=== PATIENT | female | born 1955 | race Hispanic/Latino ===

== ENCOUNTER 2017-07-03 07:34 | Emergency (ER) | payer OTHER, MEDICARE ==
[~2017-07-03 07:34] MED LIST: AMLO5TAB2 PO; ATOR20TA65 PO; CLOP75TA14 PO; HYDR-4068 PO
[2017-07-03] MEDS ORDERED: PANTOPRAZOLE SODIUM 40 MG TABLET.DR PO ONE (08:31)
[2017-07-03] MEDS ORDERED: SODIUM CHLORIDE 0.9% 1000ML 1,000 ML IV ONE (08:31)
[2017-07-03] MEDS ORDERED: ONDANSETRON HCL 4 MG/2 ML VIAL ONE (08:31)
[2017-07-03 08:44] LABS: BASOPHILS % (AUTO) 0.4 % (0.0-5.0); LYMPHOCYTES % (AUTO) 9.4 % (21.0-51.0); MEAN CORPUSCULAR HEMOGLOBIN 29.1 pg (27.0-33.0); MEAN CORPUSCULAR HGB CONC 34.4 g/dL (32.0-36.0); MEAN CORPUSCULAR VOLUME 84.7 fL (79-99); MONOCYTES % (AUTO) 3.7 % (3.0-13.0); NEUTROPHILS % (AUTO) 84.5 % (40.0-77.0); PLATELET COUNT (AUTO) 228 K/uL (130-400); RED BLOOD CELL COUNT(AUTO) 4.95 MIL/uL (4.00-5.50); WHITE BLOOD COUNT (AUTO) 6.4 K/uL (4.8-10.8)
[2017-07-03 08:51] LABS: CREATININE 0.7 mg/dL (0.5-1.5); POTASSIUM 3.8 mmol/L (3.5-5.1)
[2017-07-03 08:57] LABS: ALBUMIN 3.4 g/dL (3.5-5.0); BILIRUBIN,TOTAL 0.7 mg/dL (0.2-1.0); TOTAL PROTEIN, SERUM 7.4 g/dL (6.0-8.3)
== END 2017-07-03 10:22 | disposition home or self-care (01) ==
LOC: EDH 07:34
DX: K52.9 Noninfective gastroenteritis and colitis, unspecified (principal); E86.0 Dehydration; L98.8 Other specified disorders of the skin and subcutaneous tissue; E78.5 Hyperlipidemia, unspecified; I10 Essential (primary) hypertension; E20.9 Hypoparathyroidism, unspecified; Z90.49 Acquired absence of other specified parts of digestive tract; Z98.890 Other specified postprocedural states
CPT/HCPCS: 36415; 71045; 74021; 80053; 83690; 84484; 85025; 93005; 96361; 96374; 99285; J2405; J7030

== ENCOUNTER 2017-07-20 10:40 | Emergency (ER) | payer OTHER, MEDICARE ==
[2017-07-20 11:20] LABS: BASOPHILS % (AUTO) 0.8 % (0.0-5.0); EOSINOPHILS % (AUTO) 2.6 % (0.0-8.0); HEMATOCRIT 42.1 % (36-48); LYMPHOCYTES % (AUTO) 31.6 % (21.0-51.0); MEAN CORPUSCULAR HEMOGLOBIN 28.6 pg (27.0-33.0); MEAN CORPUSCULAR HGB CONC 33.7 g/dL (32.0-36.0); MEAN CORPUSCULAR VOLUME 84.9 fL (79-99); MONOCYTES % (AUTO) 5.7 % (3.0-13.0); NEUTROPHILS % (AUTO) 59.3 % (40.0-77.0); NUCLEATED RED BLOOD CELLS 0.1 % (0.0-0.19); PLATELET COUNT (AUTO) 233 K/uL (130-400); RED BLOOD CELL COUNT(AUTO) 4.95 MIL/uL (4.00-5.50); RED CELL DISTRIBUTION WIDTH 14.6 % (11.0-15.5); WHITE BLOOD COUNT (AUTO) 4.2 K/uL (4.8-10.8)
[2017-07-20 11:32] LABS: CREATININE 0.5 mg/dL (0.5-1.5); POTASSIUM 4.3 mmol/L (3.5-5.1)
[2017-07-20 11:36] LABS: ALBUMIN 3.5 g/dL (3.5-5.0); BILIRUBIN,TOTAL 0.8 mg/dL (0.2-1.0); TOTAL PROTEIN, SERUM 7.4 g/dL (6.0-8.3)
[2017-07-20 11:54] LABS: APPEARANCE,URINE Clear (CLEAR); BILIRUBIN,URINE Negative (NEGATIVE); COLOR,URINE Yellow (YELLOW); GLUCOSE, URINE (UA) Negative (NEGATIVE); KETONES,URINE Negative (NEGATIVE); LEUKOCYTE ESTERASE ,URINE Large (NEGATIVE); NITRATE,URINE Negative (NEGATIVE); OCCULT BLOOD,URINE Negative (NEGATIVE); PH,URINE 7.5 (5.0-8.0); PROTEIN,URINE Negative (NEGATIVE)
[2017-07-20 12:19] LABS: BACTERIA,URINE Rare /HPF (None Seen); SQUAMOUS EPITHELIAL CELL,UR Rare /LPF (0-2)
== END 2017-07-20 13:34 | disposition home or self-care (01) ==
LOC: EDH 10:40
DX: R51 Headache (principal); R20.2 Paresthesia of skin; E78.5 Hyperlipidemia, unspecified; I10 Essential (primary) hypertension; E20.9 Hypoparathyroidism, unspecified; Z98.890 Other specified postprocedural states; Z86.73 Personal history of transient ischemic attack (TIA), and cerebral infarction without residual deficits; Z79.899 Other long term (current) drug therapy
CPT/HCPCS: 36415; 70450; 71045; 80053; 81001; 85025; 93005

== ENCOUNTER → 2017-08-30 | Outpatient (CLI) | payer OTHER, MEDICARE ==
[~2017-08-30] MED LIST changes: +ASPI-1197 PO; +CITA-107 PO; +LOSA50TA37 PO; +PANT40TA25 PO
== END ==
LOC: RAH 10:28
PROVIDERS: ATTEND Internal Medicine Gastroenterology
DX: R11.2 Nausea with vomiting, unspecified (principal); R10.9 Unspecified abdominal pain
CPT/HCPCS: 78264; A9541

== ENCOUNTER 2017-09-13 20:52 | Inpatient (IN) | payer OTHER, MEDICARE ==
[~2017-09-13] VITALS: Ht 162.6 cm; Wt 149.5 kg
[~2017-09-13 20:52] MED LIST changes: -ASPI-1197 PO; -CITA-107 PO; -LOSA50TA37 PO; -PANT40TA25 PO
[2017-09-13 21:52] LABS: BASOPHILS % (AUTO) 0.6 % (0.0-5.0); EOSINOPHILS % (AUTO) 1.8 % (0.0-8.0); HEMATOCRIT 40.3 % (36-48); LYMPHOCYTES % (AUTO) 22.8 % (21.0-51.0); MEAN CORPUSCULAR HEMOGLOBIN 29.3 pg (27.0-33.0); MEAN CORPUSCULAR HGB CONC 34.3 g/dL (32.0-36.0); MEAN CORPUSCULAR VOLUME 85.5 fL (79-99); MONOCYTES % (AUTO) 7.8 % (3.0-13.0); PLATELET COUNT (AUTO) 255 K/uL (130-400); RED BLOOD CELL COUNT(AUTO) 4.72 MIL/uL (4.00-5.50); RED CELL DISTRIBUTION WIDTH 15.4 % (11.0-15.5); WHITE BLOOD COUNT (AUTO) 5.8 K/uL (4.8-10.8)
[2017-09-13 22:09] LABS: CARBON DIOXIDE 29 mmol/L (21-32); CHLORIDE 109 mmol/L (101-111); CREATININE 0.8 mg/dL (0.5-1.5); GLOMERULAR FILTR. RATE CALC 77 mL/min (>60); GLUCOSE,RANDOM 114 mg/dL (70-105); POTASSIUM 3.8 mmol/L (3.5-5.1); SODIUM SERUM 144 mmol/L (136-145); UREA NITROGEN, BLOOD 16 mg/dL (7-18)
[2017-09-13 22:13] LABS: INR 0.98 (0.85-1.15); PARTIAL THROMBOPLASTIN TIME 23.5 SEC (26.3-35.5); PROTHROMBIN TIME 10.1 SEC (9.6-11.6)
[2017-09-13 22:23] LABS: ALANINE AMINOTRANSFERASE 30 U/L (12-78); ALBUMIN 3.5 g/dL (3.5-5.0); ASPARTATE AMINOTRANSFERASE 19 U/L (10-37); BILIRUBIN,TOTAL 0.4 mg/dL (0.2-1.0); CREATINE KINASE MB < 0.5 ng/mL (0.5-3.6); CREATINE KINASE, TOTAL 28 U/L (21-232); MYOGLOBIN 35 ng/mL (10-92); TOTAL PROTEIN, SERUM 7.6 g/dL (6.0-8.3)
[2017-09-13] MEDS ORDERED: IOPAMIDOL-370 75 ML VIAL IV ONE ×2 (23:00→23:10)
[2017-09-13 23:05] LABS: APPEARANCE,URINE Clear (CLEAR); BILIRUBIN,URINE Negative (NEGATIVE); COLOR,URINE Yellow (YELLOW); GLUCOSE, URINE (UA) Negative (NEGATIVE); KETONES,URINE Negative (NEGATIVE); LEUKOCYTE ESTERASE ,URINE Large (NEGATIVE); NITRATE,URINE Positive (NEGATIVE); OCCULT BLOOD,URINE Negative (NEGATIVE); PH,URINE 6.5 (5.0-8.0); PROTEIN,URINE Negative (NEGATIVE)
[2017-09-13 23:11] LABS: BACTERIA,URINE Many /HPF (None Seen); RBC,URINE None Seen /HPF (0-1)
[2017-09-13 23:12] LABS: AMPHET/METH SCREEN,URINE NEGATIVE (NEGATIVE); BARBITURATE SCREEN, URINE NEGATIVE (NEGATIVE); BENZODIAZEPINES SCREEN,URINE NEGATIVE (NEGATIVE); CANNABINOID SCREEN,URINE NEGATIVE (NEGATIVE); COCAINE SCREEN,URINE NEGATIVE (NEGATIVE); OPIATE SCREEN,URINE NEGATIVE (NEGATIVE); PHENCYCLIDINE SCREEN,URINE NEGATIVE (NEGATIVE)
[2017-09-14] MEDS ORDERED: LIDOCAINE HCL-MPF 1% 2ML VIAL IVP PRN (02:30)
[2017-09-14] MEDS ORDERED: POTASSIUM CHLORIDE 20 MEQ ERTAB PO PRN (02:30)
[2017-09-14] MEDS ORDERED: POTASSIUM CHLORIDE 20MEQ/100ML 100 ML IV PRN (02:30)
[2017-09-14] MEDS ORDERED: HYDRALAZINE HCL 20 MG/ML VIAL IV PRN (02:30)
[2017-09-14] MEDS ORDERED: ONDANSETRON HCL 4 MG/2 ML VIAL IV PRN (02:30)
[2017-09-14] MEDS ORDERED: POTASSIUM CHLORIDE 10% ELIXIR 20 MEQ/15 ML UDCUP PO PRN (02:30)
[2017-09-14] MEDS ORDERED: ACETAMINOPHEN 325 MG TAB PO PRN ×2 (02:30)
[2017-09-14 06:01] LABS: HEMATOCRIT 39.7 % (36-48); MEAN CORPUSCULAR HEMOGLOBIN 28.6 pg (27.0-33.0); MEAN CORPUSCULAR HGB CONC 33.5 g/dL (32.0-36.0); MEAN CORPUSCULAR VOLUME 85.6 fL (79-99); PLATELET COUNT (AUTO) 244 K/uL (130-400); RED BLOOD CELL COUNT(AUTO) 4.63 MIL/uL (4.00-5.50); RED CELL DISTRIBUTION WIDTH 15.5 % (11.0-15.5); WHITE BLOOD COUNT (AUTO) 4.8 K/uL (4.8-10.8)
[2017-09-14 06:16] LABS: HEMOGLOBIN A1C 6.1 % (4.0-6.0)
[2017-09-14 06:20] VITALS: BP 134/74
[2017-09-14 06:22] LABS: CREATININE 0.7 mg/dL (0.5-1.5); POTASSIUM 3.8 mmol/L (3.5-5.1); THYROID STIMULATING HORMONE 0.86 uIU/mL (0.36-3.74)
[2017-09-14] MEDS ORDERED: CITA-107 PO (06:47)
[2017-09-14] MEDS ORDERED: PANT40TA25 PO (06:48)
[2017-09-14] MEDS ORDERED: LOSA50TA37 PO (06:51)
[2017-09-14 08:04] VITALS: BP 115/55
[2017-09-14] MEDS ORDERED: HYDROCODONE/ACETAMINOPHEN 10/325 MG TAB PO PRN (09:45)
[2017-09-14] MEDS ORDERED: LORAZEPAM 2 MG/ML 1 ML VIAL ONE (10:05)
[2017-09-14] MEDS ORDERED: LORAZEPAM 2 MG/ML 1 ML VIAL IVP SCH (10:15)
[2017-09-14 11:58] VITALS: BP 141/82
[2017-09-14] MEDS ORDERED: BUTALB/ACETAMINOPHEN/CAFFEINE 1 EACH TABLET PO PRN (12:30)
[2017-09-14 15:26] VITALS: BP 133/75
[2017-09-14] MEDS: FAMOTIDINE 20MG TAB 20 MG TAB PO SCH ×2 (17:22→21:14)
[2017-09-14] MEDS: ASPIRIN 325 MG TABLET PO SCH (17:22)
[2017-09-14] MEDS: CLOPIDOGREL BISULFATE 75 MG TAB PO SCH (17:25)
[2017-09-14 19:00] VITALS: BP 118/63
[2017-09-14] MEDS: CITALOPRAM 20 MG TABLET PO SCH (21:13)
[2017-09-14 23:00] VITALS: BP 126/59
[2017-09-15 03:00] VITALS: BP 115/57
[2017-09-15 08:09] VITALS: BP 129/70
[2017-09-15] MEDS: CLOPIDOGREL BISULFATE 75 MG TAB PO SCH (08:43)
[2017-09-15] MEDS: AMLODIPINE BESYLATE 5 MG TAB PO SCH (08:43)
[2017-09-15] MEDS: ATORVASTATIN CALCIUM 20 MG TABLET PO SCH (08:43)
[2017-09-15] MEDS: PANTOPRAZOLE SODIUM 40 MG TABLET.DR PO SCH (08:43)
[2017-09-15] MEDS: ASPIRIN 325 MG TABLET PO SCH (08:43)
[2017-09-15] MEDS: FAMOTIDINE 20MG TAB 20 MG TAB PO SCH ×2 (08:43→21:23)
[2017-09-15] MEDS: LOSARTAN 50 MG TABLET PO SCH (08:43)
[2017-09-15 12:15] VITALS: BP 125/55
[2017-09-15] MEDS ORDERED: LORAZEPAM 2 MG/ML 1 ML VIAL IVP SCH (12:15)
[2017-09-15 15:43] VITALS: BP 126/69
[2017-09-15 20:00] VITALS: BP 133/83
[2017-09-15] MEDS: CITALOPRAM 20 MG TABLET PO SCH (21:23)
[2017-09-15] MEDS ORDERED: CEFTRIAXONE 1GM/D5W 50ML 50 ML IV SCH (23:15)
[2017-09-16] VITALS: BP 111/53
[2017-09-16] MEDS ORDERED: CEFTRIAXONE SODIUM 1 GM ONE (01:13)
[2017-09-16 04:00] VITALS: BP 118/50
[2017-09-16 08:17] VITALS: BP 128/78
[2017-09-16] MEDS: AMLODIPINE BESYLATE 5 MG TAB PO SCH (10:06)
[2017-09-16] MEDS: ASPIRIN 325 MG TABLET PO SCH (10:06)
[2017-09-16] MEDS: LOSARTAN 50 MG TABLET PO SCH (10:07)
[2017-09-16] MEDS: ATORVASTATIN CALCIUM 20 MG TABLET PO SCH (10:07)
[2017-09-16] MEDS: FAMOTIDINE 20MG TAB 20 MG TAB PO SCH (10:07)
[2017-09-16] MEDS: CLOPIDOGREL BISULFATE 75 MG TAB PO SCH (10:07)
[2017-09-16] MEDS: PANTOPRAZOLE SODIUM 40 MG TABLET.DR PO SCH (10:07)
[2017-09-16] MEDS ORDERED: ASPI-1197 PO (10:16)
[2017-09-16 11:34] VITALS: BP 125/63
[2017-09-16 20:00] VITALS: BP 123/67
[2017-09-16] MEDS ORDERED: CEFTRIAXONE SODIUM 1 GM IVP SCH (21:00)
== END 2017-09-16 16:25 | disposition home or self-care (01) | DRG 65 ==
LOC: EDH 20:52 → EDHIP 09-14 01:00 → OBSVTOIN 09-14 01:00 → 3AH 09-14 05:41 → 3CH 09-14 20:25
PROVIDERS: ADMIT Internal Medicine; ATTEND Internal Medicine
DX: I63.9 Cerebral infarction, unspecified (principal); I69.354 Hemiplegia and hemiparesis following cerebral infarction affecting left non-dominant side; N39.0 Urinary tract infection, site not specified; Z68.43 Body mass index [BMI] 50.0-59.9, adult; E20.9 Hypoparathyroidism, unspecified; E78.5 Hyperlipidemia, unspecified; E66.9 Obesity, unspecified; H54.7 Unspecified visual loss; I10 Essential (primary) hypertension; Z90.710 Acquired absence of both cervix and uterus; Z90.49 Acquired absence of other specified parts of digestive tract; Z28.21 Immunization not carried out because of patient refusal
CPT/HCPCS: 36415; 36430; 70450; 70496; 70498; 70544; 70547; 70551; 71045; 80048; 80053; 80061; 80305; 81001; 82550; 82553; 82948; 83036; 83874; 84443; 84484; 85025; 85027; 85610; 85730; 87088; 87186; 92610; 93005; 93306; 93880; A4218; J0696; J2060; Q9967

== ENCOUNTER → 2018-01-25 | Outpatient (CLI) | payer OTHER, MEDICARE ==
[~2018-01-25] VITALS: Ht 162.6 cm; Wt 149.1 kg
[~2018-01-25] MED LIST changes: -AMLO5TAB2 PO; +AMLO5TAB7 PO; +ASPI-1197 PO; +CITA-107 PO; +LOSA50TA25 PO; +PANT40TA25 PO
[2018-01-25 10:03] VITALS: BP 118/76
[2018-01-25 11:05] LABS: CREATININE 0.8 mg/dL (0.5-1.5); POTASSIUM 4.4 mmol/L (3.5-5.1)
[2018-01-25 11:36] LABS: BASOPHILS % (AUTO) 0.8 % (0.0-5.0); EOSINOPHILS % (AUTO) 4.4 % (0.0-8.0); HEMATOCRIT 42.2 % (36-48); MEAN CORPUSCULAR HEMOGLOBIN 28.8 pg (27.0-33.0); MEAN CORPUSCULAR HGB CONC 33.5 g/dL (32.0-36.0); MEAN CORPUSCULAR VOLUME 86.1 fL (79-99); MONOCYTES % (AUTO) 6.7 % (3.0-13.0); NEUTROPHILS % (AUTO) 60.1 % (40.0-77.0); NUCLEATED RED BLOOD CELLS 0.1 % (0.0-0.19); PLATELET COUNT (AUTO) 246 K/uL (130-400); RED BLOOD CELL COUNT(AUTO) 4.91 MIL/uL (4.00-5.50); RED CELL DISTRIBUTION WIDTH 14.8 % (11.0-15.5); WHITE BLOOD COUNT (AUTO) 5.2 K/uL (4.8-10.8)
[2018-01-25 11:58] LABS: INR 0.93 (0.85-1.15); PARTIAL THROMBOPLASTIN TIME 24.7 SEC (26.3-35.5); PROTHROMBIN TIME 9.8 SEC (9.6-11.6)
== END | disposition home or self-care (01) ==
LOC: EDSTATUS 08:00 → DAH 10:00
PROVIDERS: ATTEND Internal Medicine Cardiovascular Disease
DX: G45.9 Transient cerebral ischemic attack, unspecified (principal); I44.4 Left anterior fascicular block; I21.9 Acute myocardial infarction, unspecified; R94.31 Abnormal electrocardiogram [ECG] [EKG]
CPT/HCPCS: 36415; 80048; 85025; 85610; 85730; 93005

== ENCOUNTER 2018-12-18 16:06 | Emergency (ER) | payer OTHER, MEDICARE ==
[~2018-12-18 16:06] MED LIST changes: -AMLO5TAB7 PO; +AMLO5TAB9 PO; -ASPI-1197 PO; -CITA-107 PO; +LEVO500T2 PO; -LOSA50TA25 PO; +LOSA50TA64 PO; +METH4TAB3 PO
== END 2018-12-18 18:18 | disposition home or self-care (01) ==
LOC: EDH 16:06
DX: S00.93XA Contusion of unspecified part of head, initial encounter (principal); I10 Essential (primary) hypertension; E78.5 Hyperlipidemia, unspecified; E03.9 Hypothyroidism, unspecified; Z86.73 Personal history of transient ischemic attack (TIA), and cerebral infarction without residual deficits; S70.02XA Contusion of left hip, initial encounter; V49.49XA Driver injured in collision with other motor vehicles in traffic accident, initial encounter; Y93.89 Activity, other specified; Y92.410 Unspecified street and highway as the place of occurrence of the external cause; Y99.8 Other external cause status
CPT/HCPCS: 70450; 71045; 73502

== ENCOUNTER → 2019-01-27 | Outpatient (CLI) | payer OTHER, MEDICARE | END | disposition home or self-care (01) | LOC: RAH 10:11 | PROVIDERS: ATTEND Family Medicine | DX: Z12.31 Encounter for screening mammogram for malignant neoplasm of breast (principal) | CPT/HCPCS: 77067 ==

== ENCOUNTER → 2019-05-13 | Outpatient (CLI) | payer OTHER, MEDICARE | END | disposition home or self-care (01) | LOC: SHCH 08:48 | PROVIDERS: ATTEND Internal Medicine Cardiovascular Disease | DX: I65.23 Occlusion and stenosis of bilateral carotid arteries (principal); I67.9 Cerebrovascular disease, unspecified | CPT/HCPCS: 93880 ==

== ENCOUNTER → 2019-05-19 | Outpatient (CLI) | payer OTHER, MEDICARE | END | disposition home or self-care (01) | LOC: SHCH 13:05 | PROVIDERS: ATTEND Internal Medicine Cardiovascular Disease | DX: I35.8 Other nonrheumatic aortic valve disorders (principal); I10 Essential (primary) hypertension | CPT/HCPCS: 93306 ==

== ENCOUNTER 2019-06-04 17:59 | Emergency (ER) | payer OTHER, MEDICARE ==
[2019-06-04] MEDS ORDERED: HYDROCODONE/ACETAMINOPHEN 10/325 MG TAB ONE (20:47)
[2019-06-04] MEDS ORDERED: KETOROLAC TROMETHAMINE 30MG/ML ONE (20:47)
== END 2019-06-04 21:16 | disposition home or self-care (01) ==
LOC: EDH 17:59
DX: S80.12XA Contusion of left lower leg, initial encounter (principal); E78.5 Hyperlipidemia, unspecified; I10 Essential (primary) hypertension; E03.9 Hypothyroidism, unspecified; Z90.710 Acquired absence of both cervix and uterus; Z90.49 Acquired absence of other specified parts of digestive tract; W01.0XXA Fall on same level from slipping, tripping and stumbling without subsequent striking against object, initial encounter; Y93.01 Activity, walking, marching and hiking; Y92.89 Other specified places as the place of occurrence of the external cause; Y99.8 Other external cause status
CPT/HCPCS: 73502; 73552; 73562; 73590; 96372; 99284; J1885

== ENCOUNTER 2019-06-16 23:48 | Emergency (ER) | payer OTHER, MEDICARE ==
[2019-06-17 00:47] LABS: BASOPHILS % (AUTO) 0.6 % (0.0-5.0); EOSINOPHILS % (AUTO) 2.7 % (0.0-8.0); HEMATOCRIT 36.6 % (36-48); LYMPHOCYTES % (AUTO) 27.3 % (21.0-51.0); MEAN CORPUSCULAR HEMOGLOBIN 28.4 pg (27.0-33.0); MEAN CORPUSCULAR HGB CONC 32.5 g/dL (32.0-36.0); MEAN CORPUSCULAR VOLUME 87.4 fL (79-99); MONOCYTES % (AUTO) 6.9 % (3.0-13.0); NEUTROPHILS % (AUTO) 62.3 % (40.0-77.0); PLATELET COUNT (AUTO) 253 K/uL (130-400); RED BLOOD CELL COUNT(AUTO) 4.19 MIL/uL (4.00-5.50); RED CELL DISTRIBUTION WIDTH 14.8 % (11.0-15.5); WHITE BLOOD COUNT (AUTO) 5.2 K/uL (4.8-10.8)
[2019-06-17 00:49] LABS: CREATININE 0.8 mg/dL (0.5-1.5); POTASSIUM 4.2 mmol/L (3.5-5.1)
[2019-06-17 00:55] LABS: ALBUMIN 3.6 g/dL (3.5-5.0); BILIRUBIN,TOTAL 0.7 mg/dL (0.2-1.0); TOTAL PROTEIN, SERUM 6.9 g/dL (6.0-8.3)
[2019-06-17 00:59] LABS: INR 0.95 (0.85-1.15)
== END 2019-06-17 02:40 | disposition home or self-care (01) ==
LOC: EDH 23:48
DX: M79.605 Pain in left leg (principal); E78.5 Hyperlipidemia, unspecified; I10 Essential (primary) hypertension; M19.90 Unspecified osteoarthritis, unspecified site; E03.9 Hypothyroidism, unspecified; Z90.49 Acquired absence of other specified parts of digestive tract; Z90.710 Acquired absence of both cervix and uterus; Z98.890 Other specified postprocedural states
CPT/HCPCS: 36415; 71045; 80053; 82550; 84484; 85025; 85610; 85730; 93005; 93971

== ENCOUNTER → 2021-09-09 | Outpatient (CLI) | payer OTHER ==
[~2021-09-09] MED LIST changes: +AMLO-257 PO; -AMLO5TAB9 PO; -PANT40TA25 PO; +PANT40TA54 PO
== END | disposition home or self-care (01) ==
LOC: SHCH 09:13
PROVIDERS: ATTEND Internal Medicine Cardiovascular Disease
DX: I11.9 Hypertensive heart disease without heart failure (principal); I25.10 Atherosclerotic heart disease of native coronary artery without angina pectoris; I48.20 Chronic atrial fibrillation, unspecified; E66.9 Obesity, unspecified
CPT/HCPCS: 93306

== ENCOUNTER → 2021-10-24 | Outpatient (CLI) | payer OTHER ==
[~2021-10-24] MED LIST changes: +REGADENOSON 0.4 MG/5 ML PF SYG IVP SCH
== END | disposition home or self-care (01) ==
LOC: SHCH 08:35
PROVIDERS: ATTEND Internal Medicine Cardiovascular Disease
DX: I10 Essential (primary) hypertension (principal); R07.89 Other chest pain; R06.00 Dyspnea, unspecified
CPT/HCPCS: 78452; 93017; 96374; A9500 ×2; J2785

== ENCOUNTER → 2022-03-24 | Outpatient (CLI) | payer MEDICARE ==
[~2022-03-24] VITALS: Ht 162.6 cm; Wt 153.6 kg
[~2022-03-24] MED LIST changes: +ATOR40TA71 PO; +BREO ELLIPTA IH; +DILT180T12 PO; +ELDERBERRY PO; +LEVO-70 PO; -LEVO500T2 PO; +LORA0.5T83 PO; -METH4TAB3 PO; -REGADENOSON 0.4 MG/5 ML PF SYG IVP SCH
[2022-03-24 09:32] LABS: BASOPHILS % (AUTO) 0.6 % (0.0-5.0); EOSINOPHILS % (AUTO) 3.1 % (0.0-8.0); HEMATOCRIT 41.1 % (36-48); LYMPHOCYTES % (AUTO) 23.2 % (21.0-51.0); MEAN CORPUSCULAR HEMOGLOBIN 28.3 pg (27.0-33.0); MEAN CORPUSCULAR HGB CONC 32.1 g/dL (32.0-36.0); NEUTROPHILS % (AUTO) 64.9 % (40.0-77.0); PLATELET COUNT (AUTO) 213 K/uL (130-400); RED BLOOD CELL COUNT(AUTO) 4.67 MIL/uL (4.00-5.50); RED CELL DISTRIBUTION WIDTH 14.1 % (11.0-15.5); WHITE BLOOD COUNT (AUTO) 5.2 K/uL (4.8-10.8)
[2022-03-24 09:53] LABS: ALBUMIN 3.5 g/dL (3.5-5.0); POTASSIUM 4.6 mmol/L (3.5-5.1); TOTAL PROTEIN, SERUM 7.2 g/dL (6.0-8.3)
[2022-03-28 11:18] VITALS: BP 154/86
== END | disposition home or self-care (01) ==
LOC: DAH 10:00 → EDSTATUS 03-29 10:20
PROVIDERS: ATTEND Surgery
DX: R13.10 Dysphagia, unspecified (principal); K95.09 Other complications of gastric band procedure; Z20.822 Contact with and (suspected) exposure to COVID-19
CPT/HCPCS: 86905; 87426; 80053; 85025; 86850; 86900; 86901; 86870; 36415; 93005; A6260

== ENCOUNTER 2022-03-29 20:33 | Observation (INO) | payer MEDICARE ==
[~2022-03-29] VITALS: Ht 162.6 cm; Wt 158.2 kg
[~2022-03-29 20:33] MED LIST changes: -ATOR20TA65 PO; -HYDR-4068 PO; -LEVO-70 PO
[2022-03-29 21:07] LABS: BASOPHILS % (AUTO) 0.5 % (0.0-5.0); EOSINOPHILS % (AUTO) 3.4 % (0.0-8.0); HEMATOCRIT 42.4 % (36-48); LYMPHOCYTES % (AUTO) 25.4 % (21.0-51.0); MEAN CORPUSCULAR HEMOGLOBIN 27.7 pg (27.0-33.0); NEUTROPHILS % (AUTO) 60.3 % (40.0-77.0); PLATELET COUNT (AUTO) 229 K/uL (130-400); RED BLOOD CELL COUNT(AUTO) 5.05 MIL/uL (4.00-5.50); RED CELL DISTRIBUTION WIDTH 14.2 % (11.0-15.5); WHITE BLOOD COUNT (AUTO) 5.5 K/uL (4.8-10.8)
[2022-03-29 21:24] LABS: CREATININE 0.8 mg/dL (0.5-1.5); POTASSIUM 3.8 mmol/L (3.5-5.1)
[2022-03-29 21:30] LABS: ALBUMIN 3.9 g/dL (3.5-5.0); TOTAL PROTEIN, SERUM 7.5 g/dL (6.0-8.3)
[2022-03-29] MEDS ORDERED: HALOPERIDOL INJ 5 MG/ML VIAL IM SCH (22:30)
[2022-03-30] MEDS ORDERED: HYDRALAZINE 20MG/ML VIAL IV PRN (01:30)
[2022-03-30] MEDS ORDERED: ACETAMINOPHEN 325 MG TAB PO PRN (01:30)
[2022-03-30] MEDS ORDERED: ACETAMINOPHEN 650 MG SUPPOSITORY RC PRN (01:30)
[2022-03-30] MEDS ORDERED: NITROGLYCERIN 0.4 MG SL TAB SL PRN (01:30)
[2022-03-30] MEDS ORDERED: LACTULOSE 20 GM/30 ML UDCUP PO PRN (01:30)
[2022-03-30] MEDS ORDERED: HYDROCODONE/ACETAMINOPHEN 5/325 MG TAB PO PRN (01:30)
[2022-03-30] MEDS ORDERED: DOCUSATE SODIUM 100 MG CAP PO PRN (01:30)
[2022-03-30] MEDS ORDERED: ONDANSETRON 4MG INJ IVP PRN (01:30)
[2022-03-30] MEDS ORDERED: CLONIDINE HCL 0.1 MG TABLET PO PRN (01:30)
[2022-03-30 06:00] VITALS: BP 157/75
[2022-03-30] MEDS: INSULIN HUMULIN R 100 UNIT/ML 3ML SQ SCH ×4 (07:03→19:36)
[2022-03-30 07:50] VITALS: BP 137/77
[2022-03-30] MEDS: ENOXAPARIN SODIUM 100 MG/1 ML SQ SCH ×2 (08:18→19:37)
[2022-03-30] MEDS: ASPIRIN 81MG CHEW TAB PO SCH (08:19)
[2022-03-30] MEDS ORDERED: FAMOTIDINE 20MG TAB PO SCH (09:00)
[2022-03-30] MEDS ORDERED: ENOXAPARIN SODIUM 30 MG/0.3 ML SQ SCH (09:00)
[2022-03-30] MEDS ORDERED: SIMVASTATIN 20 MG TABLET PO SCH (09:00)
[2022-03-30 11:14] VITALS: BP 132/72
[2022-03-30 12:42] LABS: APPEARANCE,URINE CLOUDY (CLEAR); BILIRUBIN,URINE NEGATIVE (NEGATIVE); COLOR,URINE YELLOW (YELLOW); GLUCOSE, URINE (UA) NEGATIVE (NEGATIVE); KETONES,URINE NEGATIVE (NEGATIVE); LEUKOCYTE ESTERASE ,URINE 250 Leu/uL (NEGATIVE); NITRATE,URINE 1+ (NEGATIVE); OCCULT BLOOD,URINE NEGATIVE (NEGATIVE); PH,URINE 5.5 (5.0-8.0); PROTEIN,URINE 20 mg/dL (NEGATIVE); UROBILINOGEN,URINE 0.2 mg/dL (0.2-1.0)
[2022-03-30 12:58] LABS: BACTERIA,URINE FEW /HPF (None Seen); MUCUS,URINE RARE LPF (None Seen); SQUAMOUS EPITHELIAL CELL,UR FEW /HPF (0-2); WBC,URINE 51-100 /HPF (0-1)
[2022-03-30] MEDS: FLUTICASONE/VILANTEROL 1 EACH AER.POW.BA IH SCH (13:00)
[2022-03-30] MEDS: PHARMACY COMMUNICATION MISC SCH ×4 (13:30→22:17)
[2022-03-30] MEDS ORDERED: IOHEXOL 350 MG/ML 100ML INFUS..BTL IV ONE (15:34)
[2022-03-30 15:51] VITALS: BP 137/82
[2022-03-30] MEDS: 0.9%NACL 1000ML 1,000 ML IV SCH (16:00)
[2022-03-30] MEDS: ZOSYN 3.375GM +NS 50ML IV SCH ×2 (16:26→23:31)
[2022-03-30] MEDS: DOXYCYCLINE HYCLATE 100 MG TABLET PO SCH (19:37)
[2022-03-30 20:01] VITALS: BP 137/58
[2022-03-31 00:01] VITALS: BP 127/81
[2022-03-31 02:57] LABS: HEMATOCRIT 41.2 % (36-48); MEAN CORPUSCULAR HEMOGLOBIN 27.9 pg (27.0-33.0); MEAN CORPUSCULAR HGB CONC 32.5 g/dL (32.0-36.0); MEAN CORPUSCULAR VOLUME 85.8 fL (79-99); RED BLOOD CELL COUNT(AUTO) 4.8 MIL/uL (4.00-5.50); RED CELL DISTRIBUTION WIDTH 14.2 % (11.0-15.5); WHITE BLOOD COUNT (AUTO) 5.4 K/uL (4.8-10.8)
[2022-03-31] MEDS: PANTOPRAZOLE 40 MG TAB DR PO SCH (03:10)
[2022-03-31 03:12] LABS: HEMOGLOBIN A1C 6.3 % (4.0-6.0)
[2022-03-31 03:32] LABS: POTASSIUM 4.3 mmol/L (3.5-5.1); THYROID STIMULATING HORMONE 0.52 uIU/mL (0.36-3.74)
[2022-03-31 03:44] VITALS: BP 133/65
[2022-03-31] MEDS: INSULIN HUMULIN R 100 UNIT/ML 3ML SQ SCH ×4 (05:51→20:03)
[2022-03-31 07:30] VITALS: BP 123/69
[2022-03-31] MEDS ORDERED: METOPROLOL TARTRATE 1 MG/ML 5ML VIAL IV ONE (08:07)
[2022-03-31] MEDS: ELDERBERRY PO SCH (09:00)
[2022-03-31] MEDS: FLUTICASONE/VILANTEROL 1 EACH AER.POW.BA IH SCH (09:00)
[2022-03-31] MEDS: ZOSYN 3.375GM +NS 50ML IV SCH ×3 (09:09→23:44)
[2022-03-31] MEDS: ATORVASTATIN 40 MG TABLET PO SCH (09:09)
[2022-03-31] MEDS: DILTIAZEM 180MG SR CAP PO SCH (09:09)
[2022-03-31] MEDS: LORAZEPAM 0.5 MG TABLET PO SCH (09:09)
[2022-03-31] MEDS: LOSARTAN 50 MG TABLET PO SCH (09:10)
[2022-03-31] MEDS: CLOPIDOGREL 75MG TAB PO SCH (09:10)
[2022-03-31] MEDS: ASPIRIN 81MG CHEW TAB PO SCH (09:10)
[2022-03-31] MEDS: DOXYCYCLINE HYCLATE 100 MG TABLET PO SCH ×2 (09:10→20:50)
[2022-03-31] MEDS: PHARMACY COMMUNICATION MISC SCH ×3 (09:11→21:32)
[2022-03-31] MEDS: ENOXAPARIN SODIUM 100 MG/1 ML SQ SCH ×2 (09:11→20:50)
[2022-03-31 11:00] VITALS: BP_SYST 107; BP_SYST 111; BP_DIAS 57; BP_DIAS 63
[2022-03-31] MEDS: 0.9%NACL 1000ML 1,000 ML IV SCH (12:00)
[2022-03-31 20:00] VITALS: BP 114/50
[2022-04-01] VITALS: BP 104/66
[2022-04-01] MEDS: PHARMACY COMMUNICATION MISC SCH ×2 (01:30→05:30)
[2022-04-01] MEDS: 0.9%NACL 1000ML 1,000 ML IV SCH (03:51)
[2022-04-01 04:00] VITALS: BP 118/46
[2022-04-01 05:08] LABS: HEMATOCRIT 36.9 % (36-48); MEAN CORPUSCULAR HEMOGLOBIN 28.2 pg (27.0-33.0); MEAN CORPUSCULAR HGB CONC 33.1 g/dL (32.0-36.0); MEAN CORPUSCULAR VOLUME 85.4 fL (79-99); RED BLOOD CELL COUNT(AUTO) 4.32 MIL/uL (4.00-5.50)
[2022-04-01 05:16] LABS: CREATININE 0.9 mg/dL (0.5-1.5); POTASSIUM 3.7 mmol/L (3.5-5.1)
[2022-04-01] MEDS: INSULIN HUMULIN R 100 UNIT/ML 3ML SQ SCH ×2 (05:36→11:30)
[2022-04-01] MEDS: ELDERBERRY PO SCH (07:20)
[2022-04-01 08:00] VITALS: BP 118/61
[2022-04-01] MEDS: DILTIAZEM 180MG SR CAP PO SCH (08:45)
[2022-04-01] MEDS: ASPIRIN 81MG CHEW TAB PO SCH (08:45)
[2022-04-01] MEDS: ATORVASTATIN 40 MG TABLET PO SCH (08:46)
[2022-04-01] MEDS: LORAZEPAM 0.5 MG TABLET PO SCH (08:46)
[2022-04-01] MEDS: ZOSYN 3.375GM +NS 50ML IV SCH (08:46)
[2022-04-01] MEDS: PANTOPRAZOLE 40 MG TAB DR PO SCH (08:46)
[2022-04-01] MEDS: CLOPIDOGREL 75MG TAB PO SCH (08:47)
[2022-04-01] MEDS: ENOXAPARIN SODIUM 100 MG/1 ML SQ SCH (08:47)
[2022-04-01] MEDS: DOXYCYCLINE HYCLATE 100 MG TABLET PO SCH (08:48)
[2022-04-01] MEDS: FLUTICASONE/VILANTEROL 1 EACH AER.POW.BA IH SCH (08:54)
[2022-04-01] MEDS: LOSARTAN 50 MG TABLET PO SCH (09:00)
[2022-04-01 11:49] VITALS: BP 99/46
[2022-04-01 13:56] VITALS: BP 138/79
== END 2022-04-01 14:15 | disposition home or self-care (01) ==
LOC: EDH 20:33 → EDHIP 03-30 01:30 → 4CH 03-30 05:51
PROVIDERS: ADMIT Internal Medicine Critical Care Medicine; ATTEND Internal Medicine Critical Care Medicine
DX: R07.89 Other chest pain (principal); N39.0 Urinary tract infection, site not specified; L03.011 Cellulitis of right finger; E03.9 Hypothyroidism, unspecified; G47.33 Obstructive sleep apnea (adult) (pediatric); E66.01 Morbid (severe) obesity due to excess calories; E11.9 Type 2 diabetes mellitus without complications; E78.5 Hyperlipidemia, unspecified; G45.9 Transient cerebral ischemic attack, unspecified; I10 Essential (primary) hypertension; I25.10 Atherosclerotic heart disease of native coronary artery without angina pectoris; I44.0 Atrioventricular block, first degree; I44.4 Left anterior fascicular block; I69.354 Hemiplegia and hemiparesis following cerebral infarction affecting left non-dominant side; I77.819 Aortic ectasia, unspecified site; Z86.19 Personal history of other infectious and parasitic diseases; Z87.440 Personal history of urinary (tract) infections; Z90.710 Acquired absence of both cervix and uterus; Z79.899 Other long term (current) drug therapy
CPT/HCPCS: 99285; 84484 ×4; 80053; 85025; 36415 ×4; 71045; 93005 ×2; 96372 ×3; 96365; 96366 ×3; 82550 ×4; 83874 ×3; 83880 ×2; 85378; 86901; 86905; 87040 ×2; 87077; 87088; 87186; 82948 ×10; 81001; 93970; 83036; 84443; 80061; 80048 ×2; 85027 ×2; 86850; 86900; 86922; 86870; 75574; 96361; J1650 ×5; G0378 ×61; J2543 ×6; Q9967; J3490

== ENCOUNTER 2022-05-01 23:19 | Emergency (ER) | payer MEDICARE ==
[~2022-05-01] VITALS: Ht 165.1 cm; Wt 153.8 kg
[~2022-05-01 23:19] MED LIST changes: -AMLO-257 PO; +CLOP-31 PO; -CLOP75TA14 PO
[2022-05-02 01:14] LABS: BASOPHILS % (AUTO) 0.5 % (0.0-5.0); EOSINOPHILS % (AUTO) 0.5 % (0.0-8.0); HEMATOCRIT 40.9 % (36-48); LYMPHOCYTES % (AUTO) 12.4 % (21.0-51.0); MEAN CORPUSCULAR HEMOGLOBIN 27.1 pg (27.0-33.0); MEAN CORPUSCULAR HGB CONC 32.8 g/dL (32.0-36.0); MEAN CORPUSCULAR VOLUME 82.6 fL (79-99); NEUTROPHILS % (AUTO) 79.4 % (40.0-77.0); PLATELET COUNT (AUTO) 254 K/uL (130-400); RED BLOOD CELL COUNT(AUTO) 4.95 MIL/uL (4.00-5.50); RED CELL DISTRIBUTION WIDTH 14.2 % (11.0-15.5); WHITE BLOOD COUNT (AUTO) 8.6 K/uL (4.8-10.8)
[2022-05-02 01:25] LABS: POTASSIUM 4.1 mmol/L (3.5-5.1)
[2022-05-02 01:29] LABS: ALBUMIN 3.3 g/dL (3.5-5.0); CRP QUANTITATIVE 48.2 mg/L (0.00-9.0); MAGNESIUM 1.6 mg/dL (1.80-2.40); TOTAL PROTEIN, SERUM 7.8 g/dL (6.0-8.3)
[2022-05-02] MEDS ORDERED: MORPHINE 4 MG SYG IVP ONE (01:30)
[2022-05-02 01:40] LABS: APPEARANCE,URINE CLOUDY (CLEAR); BILIRUBIN,URINE NEGATIVE (NEGATIVE); COLOR,URINE LIGHT-YELLOW (YELLOW); GLUCOSE, URINE (UA) NEGATIVE (NEGATIVE); KETONES,URINE NEGATIVE (NEGATIVE); LEUKOCYTE ESTERASE ,URINE 250 Leu/uL (NEGATIVE); NITRATE,URINE NEGATIVE (NEGATIVE); PROTEIN,URINE 10 mg/dL (NEGATIVE); UROBILINOGEN,URINE 0.2 mg/dL (0.2-1.0)
[2022-05-02 01:58] LABS: BACTERIA,URINE MOD /HPF (None Seen); MUCUS,URINE RARE LPF (None Seen); SQUAMOUS EPITHELIAL CELL,UR FEW /HPF (0-2); WBC,URINE TNTC /HPF (0-1)
[2022-05-02] MEDS ORDERED: ASPIRIN 325MG TAB PO ONE (02:30)
[2022-05-02] MEDS ORDERED: MAGNESIUM OXIDE 400 MG TABLET PO SCH (02:30)
[2022-05-02 03:45] VITALS: BP 128/62
[2022-05-02] MEDS ORDERED: MACR100 PO (04:16)
[2022-05-02] MEDS ORDERED: NITROFURANTOIN MONOHYD/M-CRYST 100 MG CAPSULE PO ONE (04:30)
== END 2022-05-02 04:37 | disposition home or self-care (01) ==
LOC: EDH 23:19
DX: M25.551 Pain in right hip (principal); B02.9 Zoster without complications; N30.00 Acute cystitis without hematuria; M25.511 Pain in right shoulder; R51.9 Headache, unspecified; E11.9 Type 2 diabetes mellitus without complications; I10 Essential (primary) hypertension; Z86.73 Personal history of transient ischemic attack (TIA), and cerebral infarction without residual deficits; Z98.890 Other specified postprocedural states; Z79.899 Other long term (current) drug therapy
CPT/HCPCS: 99285; 82550; 83735; 84484; 80053; 85025; 87077; 87088; 87186; 86140; 81001; 36415; 96374; 72192; 93005; J2270

== ENCOUNTER 2022-05-23 04:00 | Emergency (ER) | payer MEDICARE ==
[~2022-05-23] VITALS: Ht 162.6 cm; Wt 152.9 kg
[~2022-05-23 04:00] MED LIST changes: +MACR100 PO
[2022-05-23] MEDS: MORPHINE 5 MG/ML VIAL (5MG OR GREATER DOSE) IM ONE (04:44)
[2022-05-23] MEDS: PROCHLORPERAZINE 10MG/2ML INJ IM ONE (04:44)
[2022-05-23 06:45] VITALS: BP 121/63
== END 2022-05-23 07:15 | disposition home or self-care (01) ==
LOC: EDH 04:00
DX: B02.29 Other postherpetic nervous system involvement (principal); E66.01 Morbid (severe) obesity due to excess calories; Z68.43 Body mass index [BMI] 50.0-59.9, adult; E11.9 Type 2 diabetes mellitus without complications; I10 Essential (primary) hypertension; Z86.73 Personal history of transient ischemic attack (TIA), and cerebral infarction without residual deficits; Z79.899 Other long term (current) drug therapy; Z98.890 Other specified postprocedural states
CPT/HCPCS: 99284; 96372 ×2; J2270; J0780

== ENCOUNTER 2022-08-05 14:49 | Emergency (ER) | payer OTHER, MEDICARE ==
[~2022-08-05] VITALS: Ht 162.6 cm; Wt 149.2 kg
[2022-08-05 14:50] VITALS: BP 155/87
[2022-08-05] MEDS ORDERED: KETOROLAC 15MG/ML VIAL (15MG/ML) IM ONE (17:00)
== END 2022-08-05 17:37 | disposition left against medical advice (07) ==
LOC: EDH 14:49
DX: M25.552 Pain in left hip (principal); M25.562 Pain in left knee; M25.572 Pain in left ankle and joints of left foot; Z53.21 Procedure and treatment not carried out due to patient leaving prior to being seen by health care provider

== ENCOUNTER 2023-04-26 05:52 | Day surgery (SDC) | payer MEDICARE, OTHER ==
[2023-04-09 13:35] VITALS: BP 184/77; PULSE 78; RESP 18
[~2023-04-26] VITALS: Ht 160 cm; Wt 146.1 kg
[2023-04-26] VITALS (11 sets, daily range): BP systolic 105–149; BP diastolic 51–92; PULSE 72–85; RESP 15–18
[~2023-04-26 05:52] MED LIST changes: -LORA0.5T83 PO
[2023-04-26] MEDS ORDERED: 0.9%NACL 1000ML 1,000 ML IV ONE (06:18)
[2023-04-26] MEDS ORDERED: MIDAZOLAM HCL 1 MG/ML 2ML VIAL ONE (08:05)
[2023-04-26] MEDS ORDERED: PROPOFOL 10 MG/ML 20ML VIAL IV ONE (08:05)
[2023-04-26] MEDS ORDERED: LIDOCAINE PF 100MG/5ML (2%) SYRINGE 5ML ONE (08:05)
[2023-04-26] MEDS ORDERED: GLYCOPYRROLATE 1 MG/5 ML SYRINGE ONE (08:06)
== END 2023-04-26 09:35 | disposition home or self-care (01) ==
LOC: DAH 05:52 → ENDO 05:52
PROVIDERS: ATTEND Internal Medicine Gastroenterology
DX: R10.13 Epigastric pain (principal); K95.09 Other complications of gastric band procedure; K29.50 Unspecified chronic gastritis without bleeding; K31.89 Other diseases of stomach and duodenum; K22.89 Other specified disease of esophagus; I10 Essential (primary) hypertension; E78.5 Hyperlipidemia, unspecified; I25.2 Old myocardial infarction; J45.909 Unspecified asthma, uncomplicated; E11.9 Type 2 diabetes mellitus without complications; E66.9 Obesity, unspecified; Z79.01 Long term (current) use of anticoagulants; Z79.899 Other long term (current) drug therapy; Z86.73 Personal history of transient ischemic attack (TIA), and cerebral infarction without residual deficits; Z98.84 Bariatric surgery status
CPT/HCPCS: 43239; J3490; J7030 ×2; J2001; J2250; J2704; A4620; A4215 ×2; A4223; A7002; A4222; A4221; A4663; A4606

== ENCOUNTER → 2023-07-11 | Outpatient (CLI) | payer OTHER ==
[~2023-07-11] MED LIST changes: -MACR100 PO
== END | disposition home or self-care (01) ==
LOC: RAH 13:35
PROVIDERS: ATTEND Family Medicine
DX: Z12.31 Encounter for screening mammogram for malignant neoplasm of breast (principal); R92.1 Mammographic calcification found on diagnostic imaging of breast
CPT/HCPCS: 77067

== ENCOUNTER → 2023-07-12 | Outpatient (CLI) | payer OTHER, MEDICARE ==
[2023-07-12 10:48] LABS: INR 0.94 (0.85-1.15)
[2023-07-12 10:49] LABS: PARTIAL THROMBOPLASTIN TIME 26.4 SEC (26.3-35.5)
== END | disposition home or self-care (01) ==
LOC: RAH 09:47
PROVIDERS: ATTEND Internal Medicine
DX: E04.1 Nontoxic single thyroid nodule (principal); Z79.01 Long term (current) use of anticoagulants; Z79.899 Other long term (current) drug therapy
CPT/HCPCS: 10005; 36415; 76942; 85610; 85730; 88112; 88305

== ENCOUNTER → 2024-05-15 | Outpatient (CLI) | payer OTHER, MEDICARE ==
--- NOTE | 2024-05-18 14:40 | HMCSR ---
APPROVED REPORT EXAM: Two-dimensional and M-mode echocardiogram with Doppler and color Doppler. INDICATION ICD: Atherosclerotic heart disease of [place] coronary artery without angina pectoris I25.10 RISK FACTORS Hypertension Hyperlipidemia Diabetes 2D Dimensions RVDd3.4 cmLVEF(%)32.0 (>50%)LVED Vol(simp.)126.0 mL IVSd1.3 (0.7-1.1cm)FS(%)15 %LVES Vol(simp.)81.0 mL LVDd5.2 (3.8-5.6cm)LA (2D)4.4 (1.6-4.0cm)LVEF(%, simp.)36 % PWd1.3 (0.7-1.1cm)Ao Root(2D)3.6 (2.0-3.7cm)LA ESV INDEX (BP)31.90 mL/m2 LVDs4.4 (2.5-4.0cm)LVOT diam2.3 (1.8-2.4cm) Aortic Valve AoV Vmax1.2 m/[place] GR6.1 mmHgLVOT Vmax1.0 m/s AoV VTI0.2 mAo Mean GR3.6 mmHgLVOT VTI0.18 m MEHNAZ (VMAX)3.1 cm2Al P1/2T702 msAVA (VTI) 3.1 cm2 Mitral Valve MV E Vmax58.7 cm/sDECEL Qawe005 ms MV A Lrtn254.3 cm/s E/A ratio0.5 MR Max PG74 mmHg TDI E/E' Jehdqb09.0E/E' Bkutexi78.6 Pulmonary Valve PV Vmax0.9 m/sPV VTI0.17 mPV Mean GR2 mmHg PV Peak GR3.5 mmHg Tricuspid Valve TR Vmax1.8 m/sRAP (EST) 3 mxUsTFDF34.6 mmHg TR Peak GR12.6 mmHg Left Ventricle The left ventricle is mildly dilated. Infero-lateral hypokinesis. There is mild concentric left ventr icular hypertrophy. LVEF is 40%. No left ventricle thrombus noted on this study. Stage I diastolic dy sfunction. Right Ventricle The right ventricle is normal size. The right ventricular systolic function is normal. Atria The left atrium size is normal. The right atrium size is normal. Aortic Valve Aortic valve is trileaflet. Aortic valve leaflets are sclerotic but open well. Mild aortic regurgitat ion. There is no aortic valvular stenosis. Mitral Valve Mitral valve leaflets are sclerotic but open well. Mitral regurgitation is trace. There is no mitral valve stenosis. Tricuspid Valve The tricuspid valve leaflets appear normal. There is trace tricuspid regurgitation. Pulmonic Valve Pulmonic valve is not well visualized. There is no pulmonic valvular regurgitation. Great Vessels Aortic root is mildly dilated. Ascending aorta measures 4.0cm. The IVC is normal in size and collapse s >50% with inspiration. Pericardium No pericardial effusion. Other Information Technically limited study due to body habitus. Conclusion The left ventricle is mildly dilated. There is mild concentric left ventricular hypertrophy. LVEF is 40%. Stage I diastolic dysfunction. Infero-lateral hypokinesis. The right ventricle is normal size. The right atrium size is normal. The left atrium size is normal. Aortic valve is trileaflet. Aortic valve leaflets are sclerotic but open well. Mild aortic regurgitation. Mitral valve leaflets are sclerotic but open well. Mitral regurgitation is trace. There is trace tricuspid regurgitation. There is no pulmonic valvular regurgitation. Aortic root is mildly dilated. The IVC is normal in size and collapses >50% with inspiration. No pericardial effusion.
== END | disposition home or self-care (01) ==
LOC: SHCH 08:48
PROVIDERS: ATTEND Internal Medicine Cardiovascular Disease
DX: I08.0 Rheumatic disorders of both mitral and aortic valves (principal); I25.10 Atherosclerotic heart disease of native coronary artery without angina pectoris; E11.9 Type 2 diabetes mellitus without complications; E78.5 Hyperlipidemia, unspecified
CPT/HCPCS: 93306

== ENCOUNTER → 2024-08-11 | Outpatient (CLI) | payer OTHER, MEDICARE ==
--- NOTE | 2024-08-14 12:37 | HMCIMG ---
MAMMO SCREENING BILATERAL HISTORY: Screening mammogram. COMPARISON: 08/11/2024 TECHNIQUE: Bilateral screening mammogram with CAD was performed with craniocaudal and mediolateral oblique projections. FINDINGS: There are scattered areas of fibroglandular density. There is no evidence of a dominant mass, or suspicious microcalcification. Bilateral dystrophic calcifications are seen. There is no evidence of nipple retraction or skin thickening. IMPRESSION: 1. Stable mammogram. Patient was entered into a reminder system with a target due date for their next mammogram. BI-RADS: CATEGORY 2: BENIGN FINDINGS Recommend monthly self breast exam as well as annual clinical examination. A negative x-ray should not delay biopsy if a dominant or clinically suspicious mass is present, since 8-10% of cancers are not identified by mammography. Dense breasts particularly, may obscure an underlying neoplasm. Some of these may be detected clinically and therefore, clinical examination is an essential part of breast evaluation.
== END | disposition home or self-care (01) ==
LOC: RAH 12:46
PROVIDERS: ATTEND Family Medicine
DX: Z12.31 Encounter for screening mammogram for malignant neoplasm of breast (principal)
CPT/HCPCS: 77067

== ENCOUNTER → 2025-01-19 | Outpatient (CLI) | payer OTHER, MEDICAID ==
[2025-01-19 22:30] VITALS: PULSE 90; RESP 16
[2025-01-19 23:03] VITALS: PULSE 68; RESP 14
[2025-01-19 23:32] VITALS: PULSE 66; RESP 14
[2025-01-20] VITALS (11 sets, daily range): PULSE 56–91; RESP 14–18
== END | disposition home or self-care (01) ==
LOC: SLP 20:07
PROVIDERS: ATTEND Internal Medicine Cardiovascular Disease
DX: G47.33 Obstructive sleep apnea (adult) (pediatric) (principal); R06.83 Snoring; I10 Essential (primary) hypertension; E11.9 Type 2 diabetes mellitus without complications; R53.83 Other fatigue; E66.9 Obesity, unspecified; R56.9 Unspecified convulsions; R51.9 Headache, unspecified; M25.50 Pain in unspecified joint; R35.0 Frequency of micturition; R45.1 Restlessness and agitation
CPT/HCPCS: 95810

== ENCOUNTER → 2025-01-26 | Outpatient (CLI) | payer OTHER, MEDICAID ==
[2025-01-26 21:46] VITALS: PULSE 66; RESP 18
[2025-01-26 22:36] VITALS: PULSE 59; RESP 16
[2025-01-26 22:55] VITALS: PULSE 57; RESP 7
[2025-01-26 23:09] VITALS: PULSE 58; RESP 15
[2025-01-26 23:17] VITALS: PULSE 58; RESP 9
[2025-01-26 23:26] VITALS: PULSE 58; RESP 16
[2025-01-27] VITALS (13 sets, daily range): PULSE 55–67; RESP 15–30
== END | disposition home or self-care (01) ==
LOC: SLP 20:11
PROVIDERS: ATTEND Internal Medicine Cardiovascular Disease
DX: G47.33 Obstructive sleep apnea (adult) (pediatric) (principal); R06.83 Snoring; I10 Essential (primary) hypertension; E11.9 Type 2 diabetes mellitus without complications; R45.1 Restlessness and agitation; R53.83 Other fatigue; E66.9 Obesity, unspecified; R56.9 Unspecified convulsions; R51.9 Headache, unspecified; R35.0 Frequency of micturition
CPT/HCPCS: 95811